=== PATIENT | female | born 1990 | race African-American/Black ===

== ENCOUNTER 2019-02-27 00:07 | Emergency (ER) | payer BC ==
[~2019-02-27] VITALS: Ht 154.9 cm; Wt 131.5 kg
[2019-02-27 01:00] VITALS: BP 175/100
[2019-02-27] MEDS ORDERED: NAPROXEN 500 MG TABLET PO ONE (01:00)
[2019-02-27] MEDS ORDERED: HYDROcodone/APAP 5/325MG 1 TAB TABLET PO ONE (01:00)
[2019-02-27] MEDS ORDERED: CYCLOBENZAPRINE 10 MG TABLET. PO ONE (01:00)
[2019-02-27] MEDS ORDERED: CYCL10TA2 PO (01:03)
[2019-02-27] MEDS ORDERED: DICL50TA2 PO (01:03)
[2019-02-27] MEDS ORDERED: METH4TAB2 PO (01:03)
--- NOTE | 2019-02-27 01:03 | PHYS DOC ---
Past Medical History Past Medical History: Asthma, Hypertension, Other Additional Past Medical Histor: SLEEP APNEA Past Surgical History: No Surgical History Alcohol Use: Occasionally Drug Use: None Adult General Chief Complaint Chief Complaint: [facility] H[facility] Patient is a 28 year old female with a history of hypertension who presents to the ED today complaining of mild to moderate left shoulder pain that has been going on for 2 days. Patient denies any known injury. She states she slipped on the shoulder wrong 2 days ago. Denies any chest pain or shortness of breath. Denies any pain radiating to the left upper extremity. Denies any neck pain. Denies any numbness or tingling to the left upper extremity. Review of Systems Review of Systems Constitutional: Denies fever or chills [] Eyes: Denies change in visual acuity, redness, or eye pain [] HENT: Denies nasal congestion or sore throat [] Respiratory: Denies cough or shortness of breath [] Cardiovascular: No additional information not addressed in HPI [] GI: Denies abdominal pain, nausea, vomiting, bloody stools or diarrhea [] : Denies dysuria or hematuria [] Musculoskeletal: Reports left shoulder pain Integument: Denies rash or skin lesions [] Neurologic: Denies headache, focal weakness or sensory changes [] All other systems were reviewed and found to be within normal limits, except as documented in this note. Current Medications Current Medications Current Medications Medications (Trade) Dose Ordered Sig/Sami Start Time Stop Time Status Last Admin Dose Admin Acetaminophen/ Hydrocodone Bitart (Lortab 5/325) 2 tab 1X ONCE 02/27/19 01:00 02/27/19 01:01 02/27/19 00:33 2 TAB Cyclobenzaprine HCl (Flexeril) 10 mg 1X ONCE 02/27/19 01:00 02/27/19 01:01 02/27/19 00:33 10 MG Naproxen (Naprosyn) 500 mg 1X ONCE 02/27/19 01:00 02/27/19 01:01 02/27/19 00:33 500 MG Allergies Allergies Allergies Coded Allergies Type Severity Reaction Last Updated Verified No Known Drug Allergies 02/27/19 No Physical Exam Physical Exam Constitutional: Well developed, well nourished, no acute distress, non-toxic appearance. [] HENT: Normocephalic, atraumatic, bilateral external ears normal, oropharynx moist, no oral exudates, nose normal. [] Eyes: PERRLA, EOMI, conjunctiva normal, no discharge. [] Neck: Normal range of motion, no tenderness, supple, no stridor. [] Cardiovascular:Heart rate regular rhythm, no murmur [] Lungs & Thorax: Bilateral breath sounds clear to auscultation [] Abdomen: Bowel sounds normal, soft, no tenderness, no masses, no pulsatile masses. [] Skin: Warm, dry, no erythema, no rash. [] Back: No tenderness, no CVA tenderness. [] Extremities: Left shoulder with no obvious deformity. This is abnormal be fairly obese patient. Range of motion intact to the left shoulder. Adequate radial, medial, ulnar sensation to the left fingers. +2 left radial pulse. Cap refill less than 2 seconds and left fingers. Neurologic: Alert and oriented X 3, normal motor function, normal sensory function, no focal deficits noted. [] Psychologic: Affect normal, judgement normal, mood normal. [] Current Patient Data Vital Signs Vital Signs Date Time Temp Pulse Resp B/P (MAP) Pulse Ox O2 Delivery O2 Flow Rate FiO2 02/27/19 00:08 98.2 97 18 204/111 (142) 99 Room Air 98.2 EKG EKG [] Radiology/Procedures Radiology/Procedures [] Course & Med Decision Making Course & Med Decision Making Pertinent Labs and Imaging studies reviewed. (See chart for details) This is a 28-year-old female patient presenting to the ED today with left shoulder pain. Pain for 2 days. Patient believes she slept on his shoulder wrong. Left shoulder x-rays interpreted by Dr. Perez are negative for any acute findings. Discharged with Medrol Dosepak, cyclobenzaprine, diclofenac. Ice elevation encouraged. Blood pressure was noted at 204/111. Patient states she h as history of hypertension and has not taken her blood pressure medications specifically labetalol all day today. She has no chest pain or shortness of breath. Has no headache. Discussed the importance of compliance with blood pressure medications she promised to take the medicine as soon as she gets home. She has a PCP. Recommended she follows up in the next 7 days. Dragon Disclaimer Dragon Disclaimer This electronic medical record was generated, in whole or in part, using a voice recognition dictation system. Departure Departure Impression: Primary Impression: Left shoulder pain Additional Impression: Elevated blood pressure reading Disposition: HOME, SELF-CARE Condition: STABLE Referrals: MANUEL STONE APRN (PCP) follow up next week Patient Instructions: Hypertension, Shoulder Pain, [id number] Additional Instructions: You were evaluated in the emergency room for shoulder pain, your shoulder x-rays are negative for any acute findings. Ice elevate the shoulder. Take the prescribed medications as ordered. Please consider taking your blood pressure medication as soon as you get home. Your Blood pressure was running high at 204/111, normal blood pressure is less than 120/80. Follow-up with your doctor in the course of this coming week. Scripts Diclofenac Potassium (DICLOFENAC POTASSIUM) 50 Mg Tablet 1 TAB PO BID, #20 TAB 0 Refills Prov: DAVID DUGGAN APRN 02/27/19 Cyclobenzaprine Hcl (CYCLOBENZAPRINE HCL) 10 Mg Tablet 1 TAB PO TID, #30 TAB Prov: DAVID DUGGAN APRN 02/27/19 Methylprednisolone (MEDROL) 4 Mg Tab.ds.pk 1 PKG PO UD, #1 PKG Prov: DAVID DUGGAN APRN 02/27/19 Problem Qualifiers Primary Impression: Left shoulder pain Chronicity: acute Qualified Codes: M25.512 - Pain in left shoulder DAVID DUGGAN APRN February 27, 2019 01:03
--- NOTE | 2019-02-27 01:10 | RAD ---
Left shoulder 2 views. HISTORY: Left shoulder pain 2 views were taken the left shoulder. There is no fracture or dislocation or acute osseous abnormality. AC joint is unremarkable. IMPRESSION: 1. Negative left shoulder. Electronically signed by: Alvaro Merida MD (02/27/2019 1:07 AM) [id number]
== END 2019-02-27 01:06 | disposition home or self-care (01) ==
LOC: ER 00:07
DX: M25.512 Pain in left shoulder (principal); J45.909 Unspecified asthma, uncomplicated; I10 Essential (primary) hypertension
CPT/HCPCS: 73030; 99284